=== PATIENT | male | born 1995 | race Caucasian/White ===

== ENCOUNTER 2019-02-08 20:21 | Emergency (ER) | payer OTHER ==
--- NOTE | 2019-02-08 20:42 | ED ---
Substance Abuse/Use - HPI Summary HPI Summary: A 23 y/o M presents to ED s/p overdose on Seroquel (4 tabs of 300mg) at approx 194. Patient lost several of his photograph negatives, and is stressed because he has an art show coming up. He took the extra meds so he could sleep. He threw up shortly thereafter. He is feeling a little tired at bedside. He denies SI. He states he's had SI in the past, but this feels different. He denies taking any other medications. - History Of Current Complaint Chief Complaint: EDOverdose Stated Complaint: OVERDOSE PER PT Time Seen by Provider: 02/08/19 20:37 Hx Obtained From: Patient, Medical Records Ingestion History: Type/Name Of Drug - Seroquel, Amount Ingested - 4 tabs, 300mg each, Approximate Time Of Ingestion - 1944 Overdose Characteristics: Oral Severity Initially: Mild Severity Currently: Mild Aggravating Factor(s): Recent Stress Associated Signs And Symptoms: Vomiting, Intentional Ingestion, Other: - pos: tired. neg: SI. - Allergies/Home Medications Allergies/Adverse Reactions: Allergies Allergy/AdvReac Type Severity Reaction Status Date / Time No Known Allergies Allergy Verified 12/09/15 13:41 Home Medications: Home Medications Modafinil [Provigil] 200 mg PO DAILY 02/08/19 [History Confirmed 02/08/19] QUEtiapine TAB* [Seroquel 300 MG TAB*] 300 mg PO DAILY 02/08/19 [History Confirmed 02/08/19] lamoTRIgine TAB(*) [Lamictal TAB(*)] 100 mg PO BID 02/08/19 [History Confirmed 02/08/19] PMH/Surg Hx/FS Hx/Imm Hx Previously Healthy: Yes GI History: Reports: Other GI Disorders - pancreatitis Sensory History: Denies: Hx Deafness Opthamlomology History: Denies: Hx Legally Blind Neurological History: Denies: Hx Dementia Psychiatric History: Reports: Hx Anxiety, Hx Depression - Cancer History Cancer Type, Location and Year: REMOVED FROM [place] Infectious Disease History: No Infectious Disease History: Denies: Traveled Outside the [place] in Last 30 Days - Family History Family History: father - skin CA. mother - healthy - Social History Occupation: Student Lives: With Family Alcohol Use: Occasionally Hx Substance Use: Yes Substance Use Type: Reports: Marijuana Hx Tobacco Use: Yes Smoking Status (MU): Current Some Day Smoker Review of Systems Positive: Other - pos: tired. Positive: Vomiting Psychological: Other - neg: SI All Other Systems Reviewed And Are Negative: Yes Physical Exam - Summary Physical Exam Summary: Appearance: Well-appearing, Well-nourished, lying in bed comfortably Skin: Warm, dry, no obvious rash Eyes: sclera anicteric, no conjunctival pallor ENT: mucous membranes moist, pharynx appears normal Neck: Supple, nontender Respiratory: Clear to auscultation, no signs of respiratory distress Cardiovascular: Normal S1, S2. No murmurs. Normal distal pulses in tibial and radial bilaterally. Vital signs notable for tachycardia. Abdomen: Soft, nontender, normal active bowel sounds present Musculoskeletal: Normal, Strength/ROM Intact Neurological: A&Ox3, awake and alert, mentation is normal, speech is fluent and appropriate Psychiatric: affect is normal, does not appear anxious or depressed Triage Information Reviewed: Yes Vital Signs On Initial Exam: Initial Vitals Temp Pulse Resp BP Pulse Ox 97.0 F 131 15 115/75 95 02/08/19 20:23 02/08/19 20:23 02/08/19 20:23 02/08/19 20:23 02/08/19 20:23 Vital Signs Reviewed: Yes Diagnostics - Vital Signs Vital Signs Temp Pulse Resp BP Pulse Ox 02/08/19 20:35 125 16 96 02/08/19 20:33 111 13 122/63 96 02/08/19 20:23 97.0 F 131 15 115/75 95 - Laboratory Result Diagrams: 02/08/19 20:39 02/08/19 20:39 Lab Statement: Any lab studies that have been ordered have been reviewed, and results considered in the medical decision making process. Re-Evaluation - Re-Evaluation 1 Re-Evaluation Time: 21:44 Change: Improved Comment: Patient is feeling better, his tachycardia has resolved. Course/Dx - Course Course Of Treatment: Pt is a 23 y/o M presenting s/p overdose on Seroquel (4 tabs of 300mg) at approx 1945. He took the extra meds so he could sleep. He threw up shortly thereafter. He denies SI. Labwork is without significant abnormality. Upon re-eval, patient's tachycardia has resolved. Will discharge home. - Diagnoses Provider Diagnoses: Medication overdose Discharge - Sign-Out/Discharge Documenting (check all that apply): Patient Departure - D/C Patient Received Moderate/Deep Sedation with Procedure: No - Discharge Plan Condition: Good Disposition: HOME Referrals: Care [facility] [Outside] - If Needed Additional Instructions: Taking too much seroquel did not appear to cause any serious toxicity, so I do not expect any detention problems related to this. Nonetheless, it did cause some unpleasant symptoms and a rapid heartrate, so it's important to not take more than prescribed of any medication. - Billing Disposition and Condition Condition: GOOD Disposition: Home - Attestation Statements Document Initiated by Scribe: Yes Documenting Scribe: Micheline Luther Provider For Whom Eric is Documenting (Include Credential): Dr. William Teran MD Scribe Attestation: Micheline Black, scribed for Dr. William Teran MD on 02/09/19 at 1153. Scribe Documentation Reviewed: Yes Provider Attestation: The documentation as recorded by the Micheline colbert accurately reflects the service I personally performed and the decisions made by me, Dr. William Teran MD Status of Scribe Document: Viewed
[2019-02-08 20:47] LABS: ABS Eosinophils 0.1 10^3/ul (0-0.6); ABS Lymphocytes 1.9 10^3/ul (1.0-4.8); ABS Monocytes 0.5 10^3/ul (0-0.8); ABS Neutrophils 3.5 10^3/ul (1.5-7.7); Eosinophil % 2.4 %; Hematocrit 43 % (42-52); Hemoglobin 14.6 g/dL (14.0-18.0); Lymphocyte % 30.9 %; Mean Corpuscular HGB Conc 34 g/dL (31-36); Mean Corpuscular Hemoglobin 30 pg (27-31); Mean Corpuscular Volume 89 fL (80-94); Mean Platelet Volume 8.6 fL (7.4-10.4); Nucleated Red Blood Cells % 0.1; Platelet Count 193 10^3/uL (150-450); Red Blood Count 4.82 10^6 /uL (4.18-5.48); Red Cell Distribution Width 13 % (10.5-15)
[2019-02-08 21:28] LABS: ALT 29 U/L (7-52); AST 21 U/L (13-39); Albumin 4.5 g/dL (3.2-5.2); Albumin/Globulin Ratio 1.7 (1-3); Alkaline Phosphatase 85 U/L (34-104); Anion Gap 12 mmol/L (2-11); BUN/Creatinine Ratio 11.3 (8-20); Blood Urea Nitrogen 9 mg/dL (6-24); CO2 Carbon Dioxide 22 mmol/L (22-32); Calcium 9.5 mg/dL (8.6-10.3); Chloride 103 mmol/L (101-111); EGFR Non-African American 119.8 (>60); Globulin 2.7 g/dL (2-4); Glucose 124 mg/dL (70-100); Potassium 3.1 mmol/L (3.5-5.0); Sodium 137 mmol/L (135-145); Total Protein 7.2 g/dL (6.4-8.9)
[2019-02-08 21:35] LABS: Acetaminophen < 15 mcg/mL; Alcohol < 10 mg/dL (<10); Salicylate < 2.50 mg/dL (<30)
[2019-02-08 22:11] VITALS: BP 107/64
== END 2019-02-08 22:09 | disposition home or self-care (01) ==
LOC: ED 20:21
DX: T43.591A Poisoning by other antipsychotics and neuroleptics, accidental (unintentional), initial encounter (principal); Y92.9 Unspecified place or not applicable; Z72.0 Tobacco use
CPT/HCPCS: 36415; 80053; 80320; 80329; 83605; 85025; 93005; 99282; G0480